=== PATIENT | male | born 1985 | race Caucasian/White ===

== ENCOUNTER 2017-06-07 09:56 | Inpatient (IN) | payer OTHER ==
[2017-06-07] VITALS (7 sets, daily range): BP systolic 90–133; BP diastolic 54–82
[~2017-06-07] VITALS: Ht 190.5 cm; Wt 69.8 kg
--- NOTE | ~2017-06-07 | HC ---
[facility] [place] [address] CONSULTATION Name: BOBBY CHAN Room #: 238-P ADM IN M.R.#: [id number] Admission: 06/07/17 Attend Phys: Elias Locke MD Discharge: Date of : 85 Report #: [id number] THIS REPORT FOR: //name// CC: [facility], [facility] 238. 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 The patient has not been following up with his doctors on a regular basis, but has apparently been in moderate control on sliding scale t.i.d. lispro as well as bedtime The patient has blood sugars that are somewhat variable when checked. He is not aware of a recent hemoglobin A1c. He began to experience an upper respiratory infection, which altered his dietary and insulin habits, and he developed polyuria and polydipsia. He was evaluated in the Emergency Room and found to be hyperglycemic. He was admitted as a "ketoacidosis" although there was no confirmation of either acidosis or ketosis. The patient was placed on an insulin drip with rapid improvement of blood sugar, and he received minimal fluids. CURRENT MEDICATIONS: At the time of consultation include limited fluids and insulin as mentioned above, with added potassium phosphate and bicarbonate, ondansetron, acetaminophen, famotidine, fluticasone proprionate spray, loratadine and possibly other medication. Otherwise, there is no pertinent past or family history available at this time. OBJECTIVE: LABORATORY DATA: Hemoglobin A1c was not ordered. Arterial pH was not ordered. Most recent sodium 138, potassium 4.7, chloride 94, CO2 of 18, BUN 20, creatinine 1.2. Glucose was 410, decreasing with IV fluids and insulin infusion. Phosphorus 3.0. Fingersticks have been in the middle to high 300s of variable depending on insulin infusion. PHYSICAL EXAMINATION: GENERAL: Well-nourished, well-developed 31-year-old white male, in no acute distress. Height and weight have not yet been determined. VITAL SIGNS: The patient is afebrile, heart rate 98 and regular, blood pressure 110/80. SKIN: Warm and moist with slightly decreased turgor. The patient is alert and oriented x 3. CHEST: Clear to P and A. ABDOMEN: Benign. EXTREMITIES: Show no edema, cyanosis or clubbing. Peripheral pulses 2+ and equal bilaterally. [address] [address] CONSULTATION Name: BOBBY CHAN Room #: 238-P [facility] IN .R.#: [id number] Admission: 06/07/17 Attend Phys: Elias Locke MD Discharge: Date of : 85 Report #: [id number] NEUROLOGIC: Grossly intact. ASSESSMENT: Type 1 diabetes with recent viral syndrome and upper respiratory infection leading to hyperglycemia. The patient may have minimal, but not truly significant ketoacidosis. PLAN: 1. I will evaluate pH with arterial blood gas. The patient will be discharged long before laboratory ketone level could be obtained. 2. I will increase aggressiveness of intravenous saline hydration, monitoring the electrolytes, phosphorus, etc. 3. I will attempt to taper insulin drip and switch to q.i.d. subcutaneous insulin as the patient's dietary intake and overall health returned to normal. Hopefully, establishing improved glucose control and on limited amount of time and then assuming the patient will follow up with his primary care physician and smasher post-hospital dismissal. Thank you very much for this consultation. I will continue to follow the patient with you for management of diabetes mellitus. <ELECTRONICALLY SIGNED> By: Josse Wong MD 06/08/17 1232 1614 [id number] Josse Wong MD /nt
--- NOTE | ~2017-06-07 | EKG ---
[address] [address] ELECTROCARDIOGRAM REPORT Name: BOBBY CHANO Room #: 238-P ADM IN M.R.#: [id number] Admission: 06/07/17 Attend Phys: Elias Locke MD Discharge: Date of : 85 Report #: [id number] THIS REPORT FOR: //name// [facility] ED Test Date: 2017-06-07 Test Time: 10:31:05 Pat Name: BOBBY CHAN Department: Room: 238 Gender: M Service Trainer: VALERY : 1985 Requested By: Catrachito Rose Order Number: [id number] MD: Fermín Michael Measurements Intervals [place] Rate: 94 P: 88 AL: 158 QRS: 88 QRSD: 94 T: 59 QT: 362 QTc: 453 Interpretive Statements Sinus rhythm Consider left atrial enlargement No previous ECG available for comparison Electronically Signed On 06-07-2017 16:26:34 [employer]ES [employer] by Fermín Michael [email or web address] <ELECTRONICALLY SIGNED> By: Fermín Michael MD 06/07/17 1626 1031 1031 Fermín Michael MD /ORLIN
[~2017-06-07 09:56] MED LIST: HUMALOG100 UNIT/1; IBUPROFEN200 M2 PO; LANTUS SQ; NOVOLOG100 UNIT/1; ZOFRAN ODT4 MG PO
[2017-06-07 10:46] LABS: ABSOLUTE NEUTROPHILS 3.6 thou/uL (1.4-8.2); BASOPHILS 0.4 % (0.0-2.0); EOSINOPHILS 3.8 % (0.0-3.0); HEMATOCRIT 45.9 % (42.0-52.0); LYMPHOCYTES 26.8 % (24.0-44.0); MCHC 34.8 g/dL (28.0-37.0); MCV 91.8 fL (80.0-100.0); MONOCYTES 7.7 % (1.0-8.0); PLATELET COUNT 188 thou/uL (150-400); POLYS 61.3 % (36.0-66.0); WBC 5.9 thou/uL (4.0-11.0)
[2017-06-07 10:54] LABS: ANION GAP 20 mmol/L (7-16); BUN 20 mg/dL (7-18); CALCIUM 9.7 mg/dL (8.5-10.1); CHLORIDE 94 mmol/L (98-107); CO2 18 mmol/L (21-32); CREATININE 1.2 mg/dL (0.7-1.3); GLUCOSE 410 mg/dL (74-106); POTASSIUM 4.7 mmol/L (3.5-5.1); SODIUM 132 mmol/L (136-145)
[2017-06-07 11:03] LABS: ALBUMIN 4.3 g/dL (3.4-5.0); DIRECT BILIRUBIN 0.2 mg/dL (<0.1-0.3); LIPASE 102 U/L (73-393); SGOT 18 U/L (15-37); SGPT 27 U/L (30-65); TOTAL PROTEIN 7.4 g/dL (6.4-8.2); TROPONIN-I < 0.04 ng/mL (<0.06)
[2017-06-07 12:18] LABS: MAGNESIUM 1.8 mg/dL (1.8-2.4)
[2017-06-07 12:22] LABS: URINE BILIRUBIN NEGATIVE (Negative); URINE BLOOD TRACE (Negative); URINE CLARITY CLEAR; URINE COLOR YELLOW; URINE GLUCOSE-RANDOM* 2+ (Negative); URINE KETONES 3+ (Negative); URINE LEUKOCYTES-REFLEX NEGATIVE (Negative); URINE NITRITE-REFLEX NEGATIVE (Negative); URINE PROTEIN (DIPSTICK) NEGATIVE (Negative); URINE SPECIFIC GRAVITY 1.025 (1.005-1.035); URINE UROBILINOGEN 0.2 E.U./dl (0.2-1.0)
[2017-06-07 15:52] LABS: BE(vivo) -6.8 mmol/L (-2 to +3); HCO3 18.5 mmol/L (22.0-26.0); PCO2 36.5 mmHg (35.0-45.0); PO2 101.4 mmHg (80.0-100.0); sO2 97.3 % (92.0-98.0)
[2017-06-07 15:53] LABS: pH 7.322 (7.360-7.450)
[2017-06-08] VITALS (11 sets, daily range): BP systolic 91–129; BP diastolic 58–91
[2017-06-08 05:01] LABS: CALCIUM 8.1 mg/dL (8.5-10.1); CREATININE 1.1 mg/dL (0.7-1.3); MAGNESIUM 1.8 mg/dL (1.8-2.4); PHOSPHORUS 3.4 mg/dL (2.5-4.9); POTASSIUM 3.8 mmol/L (3.5-5.1)
[2017-06-08 05:20] LABS: BE(vivo) -4.4 mmol/L (-2 to +3); HCO3 21.2 mmol/L (22.0-26.0); PCO2 41.1 mmHg (35.0-45.0); PO2 106.8 mmHg (80.0-100.0); pH 7.331 (7.360-7.450); sO2 97.6 % (92.0-98.0)
[2017-06-08] MEDS ORDERED: TOUJEO SOL300 UNIT/1 SUBQ (17:11)
[2017-06-08] MEDS ORDERED: HUMALOG100 UNIT/1 (17:14)
== END 2017-06-08 17:51 | disposition home or self-care (01) | DRG 638 ==
LOC: ER 09:56 → ICU 11:47 → EROBS 11:47 → ICU 14:54
PROVIDERS: Internal Medicine Endocrinology, Diabetes & Metabolism; Nurse Practitioner
DX: E10.10 Type 1 diabetes mellitus with ketoacidosis without coma (principal); E87.1 Hypo-osmolality and hyponatremia; R09.81 Nasal congestion; Z90.49 Acquired absence of other specified parts of digestive tract; Z79.899 Other long term (current) drug therapy; Z88.1 Allergy status to other antibiotic agents; Z87.891 Personal history of nicotine dependence
CPT/HCPCS: 10078

== ENCOUNTER → 2017-07-19 | Outpatient (CLI) | payer OTHER ==
[~2017-07-19] MED LIST changes: +TOUJEO SOL300 UNIT/1 SUBQ
== END ==
LOC: RAD 10:24
DX: R06.02 Shortness of breath (principal)